=== PATIENT | female | born 1995 | race African-American/Black ===

== ENCOUNTER 2016-07-30 04:24 | Emergency (ER) | payer OTHER ==
--- NOTE | ~2016-07-30 | CR132 ---
[facility] A Service of [facility] RADIOLOGY TEXT RESULTS PATIENT: COMFORT JERRY LOCATION: [facility] : [birth year] UNIT #: [id number] AGE: [address]: Moises Li MD SEX: F ORDER DR: [id number] [address] [address] [id number] E MR#: [id number] Acc #: [id number] NAME: COMFORT JERRY : 1995 SEX: F STUDY DATE/TIME: 07/30/2016 2:52 UNIT: [facility] ROOM: STUDY DESCRIPTION: CR Forearm 2 View Lt Attending Physician: Sunday Li M.D. Ordering Physician: Sunday Li M.D. Primary Care Physician: No Primary Care Physician MEDICAL IMAGING REPORT This report is preliminary unless electronic signature is present EXAM 2 views of the left forearm. DATE 07/30/2016 HISTORY Left forearm pain since yesterday morning. No known injury. COMPARISON None. FINDINGS AP and lateral views of the forearm show no evidence of fracture or destructive bone lesion. No periosteal elevation is seen. No radiodense foreign bodies are noted. Adjacent soft tissue structures are normal. IMPRESSION Normal forearm. Dictated by... Lilly Blandon M.D. THIS IS AN ELECTRONICALLY VERIFIED REPORT Lilly Blandon M.D. at 07/31/2016 1:50 AM [facility]/natalie TD: 07/30/2016 11:24 JOB #: [id number] MEDICAL IMAGING REPORT [facility] A Service of [facility] / [facility] RADIOLOGY TEXT RESULTS PATIENT: COMFORT JERRY LOCATION: [facility] : [birth year] UNIT #: [id number] AGE: [address]: Moises Li MD SEX: F ORDER DR: COPY
--- NOTE | ~2016-07-30 | CR156 ---
[facility] A Service of [facility] & [facility] RADIOLOGY TEXT RESULTS PATIENT: COMFORT JERRY LOCATION: [facility] : [birth year] UNIT #: [id number] AGE: [address]: Moises Li MD SEX: F ORDER DR: [id number] [facility] [address] [place], [place] [address] [id number] E MR#: [id number] Acc #: [id number] NAME: COMFORT JERRY : 1995 SEX: F STUDY DATE/TIME: 07/30/2016 2:49 UNIT: [facility] ROOM: STUDY DESCRIPTION: CR Humerus Min 2 View Lt Attending Physician: Moises Li Ordering Physician: Sunday Li M.D. Primary Care Physician: Primary Care Physician No MEDICAL IMAGING REPORT This report is preliminary unless electronic signature is present EXAM 2 views left humerus DATE 07/30/2016 HISTORY Left humerus and forearm pain since yesterday morning. No known injury. COMPARISON None FINDINGS There is no evidence of fracture, dislocation, or radiopaque foreign body. No focal bone lesions are seen. IMPRESSION Normal humerus. Dictated by... Lilly Blandon M.D. THIS IS AN ELECTRONICALLY VERIFIED REPORT Lilly Blandon M.D. at 07/31/2016 1:[address] [facility]/to TD: 07/30/2016 11:25 JOB #: [id number] MEDICAL IMAGING REPORT COPY
== END 2016-07-30 04:30 | disposition home or self-care (01) ==
LOC: CED 04:24
DX: M25.512 Pain in left shoulder (principal)
CPT/HCPCS: 73060; 73090; 99284